=== PATIENT | female | born 1980 | race Caucasian/White ===

== ENCOUNTER 2018-09-10 12:05 | Emergency (ER) | payer BC ==
[~2018-09-10] VITALS: Ht 154.9 cm; Wt 65.8 kg
[2018-09-10] MEDS ORDERED: IBUPROFEN 600600 M1 PO (12:26)
[2018-09-10] MEDS ORDERED: NORCO 10-325 T1 EACH PO (12:26)
[2018-09-10 12:41] LABS: CALCIUM 9.8 mg/dL (8.5-10.1); CREATININE 1.5 mg/dL (0.6-1.3); POTASSIUM 3.4 mmol/L (3.5-5.1)
[2018-09-10 12:47] LABS: URINE BILIRUBIN NEGATIVE (Negative); URINE BLOOD 3+ (Negative); URINE CLARITY CLEAR; URINE COLOR YELLOW; URINE GLUCOSE-RANDOM NEGATIVE (Negative); URINE KETONES TRACE (Negative); URINE LEUKOCYTES-REFLEX 1+ (Negative); URINE NITRITE-REFLEX NEGATIVE (Negative); URINE PROTEIN NEGATIVE (Negative); URINE SPECIFIC GRAVITY >= 1.030 (1.005-1.030); URINE UROBILINOGEN 0.2 E.U./dl (0.2-1.0)
[2018-09-10 12:48] LABS: ABSOLUTE BASOPHILS 0.1 thou/uL (0.0-0.2); ABSOLUTE EOSINOPHILS 0.1 thou/uL (0.0-0.7); ABSOLUTE LYMPHOCYTES 1.7 thou/uL (0.8-5.3); ABSOLUTE NEUTROPHILS 10.7 thou/uL (1.6-8.1); BASOPHILS 0.5 %; EOSINOPHILS 0.5 %; HEMATOCRIT 41.5 % (37.0-47.0); HEMOGLOBIN 14.1 gm/dL (12.0-15.0); LYMPHOCYTES 12.9 %; MCH 30.1 pg (26.0-34.0); MCV 88.5 fL (80.0-100.0); MONOCYTES 7.1 %; MPV 8.5 fl. (7.2-11.1); NUCLEATED RBCS 0 /100WBC; PLATELET COUNT* 333 thou/uL (150-400); RBC 4.69 mil/uL (4.20-5.00); RDW-CV 13.9 % (10.5-14.5); WBC 13.5 thou/uL (4.0-11.0)
[2018-09-10 12:53] LABS: SQUAMOUS >10 Many /LPF (0-3)
[2018-09-10 12:54] LABS: CASTS None Seen /LPF (None Seen); CRYSTALS None Seen /LPF (None Seen); MUCUS 4-6 Moderate strn/LPF (None Seen)
[2018-09-10] MEDS ORDERED: TRAMADOL 50 MG50 MG PO (14:12)
[2018-09-10] MEDS ORDERED: KEFLEX500 M1 PO (14:12)
[2018-09-10 14:22] VITALS: BP 134/76
== END 2018-09-10 14:23 | disposition home or self-care (01) ==
LOC: M.ERS 12:05
PROVIDERS: Nurse Practitioner Psychiatric/Mental Health
DX: N20.1 Calculus of ureter (principal); Z87.442 Personal history of urinary calculi